=== PATIENT | male | born 1960 | race African-American/Black ===

== ENCOUNTER 2019-07-20 11:04 | Day surgery (SDC) | payer BC, OTHER ==
[~2019-07-20] VITALS: Ht 167.6 cm; Wt 103.9 kg
[~2019-07-20 11:04] MED LIST: NO ACTIVE MEDS
[2019-07-20 11:46] VITALS: Ht 167.6 cm; Wt 103.9 kg
[2019-07-20 15:37] VITALS: BP 120/65; PULSE 94; RESP 16
== END 2019-07-20 15:55 | disposition home or self-care (01) ==
LOC: GIL 11:04
PROVIDERS: ATTEND Internal Medicine Gastroenterology
DX: Z12.11 Encounter for screening for malignant neoplasm of colon (principal); D12.8 Benign neoplasm of rectum; D12.5 Benign neoplasm of sigmoid colon
CPT/HCPCS: 45380; 45385; J3010; 88305